=== PATIENT | male | born 1970 | race Caucasian/White ===

== ENCOUNTER 2018-01-22 17:17 | Emergency (ER) | payer BC ==
[2018-01-22] MEDS ORDERED: Proparacaine 0.5% Ophth Soln 15 ML Bottle EYEBOTH ONE (18:06)
--- NOTE | 2018-01-22 18:22 | EDM.PDOC ---
ED HPI GENERAL MEDICAL PROBLEM - General Chief Complaint: Eye Problems Stated Complaint: SOMETHING IN LEFT EYE Time Seen by Provider: 01/22/18 18:07 - History of Present Illness INITIAL COMMENTS - FREE TEXT/NARRATIVE: HISTORY AND PHYSICAL: History of present illness: The patient is a 47-year-old male who is up-to-date on his tetanus shot and presents after being injured by his dogs saw this morning when he was playing and complains of persistent pain to his left eye. The patient wears glasses for everything and is not a contact lens wear and says he was on the ground playing with his puppy who is a 7-month-old and the dog with his costs wiped in his eye. He felt pain immediately but he had a wedding to attend to severely delayed coming here. He complains of persistent pain and photophobia but is able to open up his eye and has some blurring of his vision. There has been no drainage from the eye and he has no other facial pain or injuries. He otherwise has no systemic complaints no nausea no vomiting no headache. Last eye exam was several months ago as he has an fermentologist at home in [facility] where he lives. Review of systems: As per history of present illness and below otherwise all systems reviewed and negative. Past medical history: As per history of present illness and as reviewed below otherwise noncontributory. Surgical history: As per history of present illness and as reviewed below otherwise noncontributory. Social history: No reported history of drug or alcohol abuse. Family history: As per history of present illness and as reviewed below otherwise noncontributory. Physical exam: General: Well-developed well-nourished overweight man who is nontoxic and has his eyes open on my evaluation with glasses on. His visual acuity is as below. HEENT: Atraumatic, normocephalic, pupils reactive EOMs intact, there is no orbital swelling or tenderness and only minimal upper eyelid swelling appreciated on the left eye. Sclera is injected on the left,, negative for conjunctival pallor or scleral icterus, mucous membranes moist, throat clear, neck supple, nontender, trachea midline. Sclera is intact and there is no visible lacerations or hyphema appreciated Lungs: Clear to auscultation, breath sounds equal bilaterally, chest nontender. Heart: S1S2, regular in rhythm no overt murmurs Abdomen: Soft, nondistended, nontender. NABS Pelvis: Deferred Genitourinary: Deferred. Rectal: Deferred. Extremities: Atraumatic, negative for cords or calf pain. Neurovascular unremarkable. Neuro: Awake, alert, oriented. Cranial nerves II through XII unremarkable. Cerebellum unremarkable. Motor and sensory unremarkable throughout. Exam nonfocal. Diagnostics: Visual acuity--20/40 left eye 20/13 right eye Therapeutics: Fluoroscein stain was performed after proparacaine was administered. There is on oval-like area of uptake/corneal abrasion noted at the 12 to 1 o'clock position on the border of the iris of the eye but not overlapping the pupil area. The patient tolerated this procedure well without any complications and the stain was irrigated out by nursing. Discussed with the patient as he is going to be in town for the next one week that he should follow-up with her fermentologist and I will give him antibiotic drops for his eye. Impression: Corneal abrasion left eye Definitive disposition and diagnosis as appropriate pending reevaluation and review of above. left eye Pain Score (Numeric/FACES): 10 - Related Data Allergies Allergy/AdvReac Type Severity Reaction Status Date / Time shellfish derived Allergy Severe Anaphylactic Verified 01/22/18 17:45 Shock Home Meds: Home Meds Albuterol [Proair HFA] 1 puff IH Q4H PRN 01/22/18 [History] Eye Drop For Glacuoma 01/22/18 [History] Glimepiride 4 mg PO BIDMEALS 01/22/18 [History] Ranitidine 01/22/18 [History] Testosterone [Androgel] 1.25 gm TD DAILY 01/22/18 [History] metFORMIN HCl [Glucophage] 1,000 mg PO BID 01/22/18 [History] Past Medical History HEENT History: Reports: Glaucoma Respiratory History: Reports: Asthma Endocrine/Metabolic History: Reports: Diabetes, Type II - Infectious Disease History Infectious Disease History: Reports: None Social & Family History - Family History Family Medical History: Noncontributory - Tobacco Use Smoking Status *Q: Never Smoker - Recreational Drug Use Recreational Drug Use: No ED ROS GENERAL - Review of Systems Review Of Systems: ROS reveals no pertinent complaints other than HPI. ED EXAM GENERAL W FULL EYE - Physical Exam Exam: See Below (See dictation) Course - Vital Signs Last Recorded V/S: Last Vital Signs Temp 36.9 C 01/22/18 17:48 Pulse 108 H 01/22/18 17:48 Resp 20 01/22/18 17:48 BP 142/87 H 01/22/18 17:48 Pulse Ox 97 01/22/18 17:48 - Orders/Labs/Meds Meds: Medications Discontinued Medications Generic Name Dose Route Start Last Admin Trade Name Freq PRN Reason Stop Dose Admin Proparacaine HCl 1 ml 01/22/18 18:06 Proparacaine 0.5% Ophth Soln EYEBOTH 01/22/18 18:07 ONETIME ONE Departure - Departure Time of Disposition: 18:21 Disposition: Home, Self-Care 01 Condition: Good Clinical Impression: Corneal abrasion Qualifiers: Encounter type: initial encounter Laterality: left Qualified Code(s): S05.02XA - Injury of conjunctiva and corneal abrasion without foreign body, left eye, initial encounter - Discharge Information Referrals: PCP,None [Primary Care Provider] - Additional Instructions: The following information is given to patients seen in the emergency department who are being discharged to home. This information is to outline your options for follow-up care. We provide all patients seen in our emergency department with a follow-up referral. The need for follow-up, as well as the timing and circumstances, are variable depending upon the specifics of your emergency department visit. If you don't have a primary care physician on staff, we will provide you with a referral. We always advise you to contact your personal physician following an emergency department visit to inform them of the circumstance of the visit and for follow-up with them and/or the need for any referrals to a consulting specialist. The emergency department will also refer you to a specialist when appropriate. This referral assures that you have the opportunity for followup care with a specialist. All of these measure are taken in an effort to provide you with optimal care, which includes your followup. Under all circumstances we always encourage you to contact your private physician who remains a resource for coordinating your care. When calling for followup care, please make the office aware that this follow-up is from your recent emergency room visit. If for any reason you are refused follow-up, please contact the [facility] emergency department at and ask to speak to the emergency department charge nurse. [facility] [address] [place] [address] Please contact the ophthalmology clinic using resources given to above to follow -up with one of the providers there on Wednesday or Wednesday. Please use eyedrops as directed and try to avoid rubbing or further injury to the eye. Avoid bright lights as this will make the discomfort worse. Please [id number] medications for pain. Return to ER as needed and as discussed
== END 2018-01-22 18:30 | disposition home or self-care (01) ==
LOC: MW.ED 17:17
DX: S05.02XA Injury of conjunctiva and corneal abrasion without foreign body, left eye, initial encounter (principal); J45.909 Unspecified asthma, uncomplicated; W54.8XXA Other contact with dog, initial encounter; E11.9 Type 2 diabetes mellitus without complications; Z79.899 Other long term (current) drug therapy; Z91.013 Allergy to seafood
CPT/HCPCS: 99283